=== PATIENT | female | born 1990 | race Caucasian/White ===

== ENCOUNTER 2023-04-09 07:49 | Observation (INO) ==
[2023-04-06 13:16] LABS: INR 0.9 (0.9-1.1); Partial Thromboplastin Time 32.4 sec (20.0-37.0); Prothrombin Time 12.8 sec (11.9-14.5)
[2023-04-06 13:20] LABS: Basophils # (Auto) 0.04 K/mcL (0.00-0.30); Basophils % (Auto) 0.5 % (0.0-2.0); Eosinophils % (Auto) 2.7 % (0.0-7.0); Hematocrit 40.1 % (34.1-44.9); Lymphocytes # (Auto) 2.28 K/mcL (1.50-4.80); Lymphocytes % (Auto) 30.5 % (15.5-49.0); Mean Cell Volume 88.9 fL (80.0-100.0); Mean Corpuscular HGB Conc 32.4 g/dL (31.0-36.0); Mean Platelet Volume 9.3 fL (8.8-12.5); Monocytes # (Auto) 0.44 K/mcL (0.10-0.90); Monocytes % (Auto) 5.9 % (1.0-12.0); Platelet Count 319 K/mcL (140-440); RBC 4.51 M/mcL (3.59-5.38); Red Cell Distribution Width 12.1 % (11.5-14.5); WBC 7.5 K/mcL (4.5-11.0)
[2023-04-06 13:29] LABS: ALT/SGPT 8 U/L (<40); AST/SGOT 12 U/L (<32); Albumin 4.3 gm/dL (3.2-5.2); Albumin/Globulin Ratio 1.9 (1.0-2.3); Alkaline Phosphatase 79 U/L (39-117); Bilirubin,Total 0.3 mg/dL (0.1-1.0); Blood Urea Nitrogen 10 mg/dL (6-20); Calcium 9.2 mg/dL (8.6-10.4); Carbon Dioxide 24 mmol/L (22-30); Chloride 102 mmol/L (96-108); Globulin 2.3 gm/dL (2.2-3.7); Glomerular Filtration Rate 112; Glucose 90 mg/dL (70-105)
[~2023-04-09 07:49] MED LIST: ceFAZolin 2 GM in DEXTROSE 5% IN WATER 50 ML IV SCH
[2023-04-09] MEDS ORDERED: IOPAMIDOL 100 ML BOTTLE IV ONE (07:50)
[2023-04-09] MEDS ORDERED: ROCURONIUM 10 MG/ML ML IV ONE (08:18)
[2023-04-09] MEDS ORDERED: PROPOFOL 200 MG/20 ML VIAL IV ONE ×2 (08:18→09:43)
[2023-04-09] MEDS ORDERED: fentaNYL 100 MCG/2 ML VIAL IV ONE ×2 (08:18→10:15)
[2023-04-09] MEDS ORDERED: DEXAMETHASONE 10 MG/ML VIAL ONE (08:18)
[2023-04-09] MEDS ORDERED: SCOPOLAMINE 1 PATCH PATCH TOPICAL ONE (09:02)
[2023-04-09] MEDS ORDERED: ONDANSETRON 4 MG/2 ML VIAL ONE (09:17)
[2023-04-09] MEDS ORDERED: MAGNESIUM SULFATE 2 GM/50 ML BAG IV ONE (09:28)
[2023-04-09] MEDS ORDERED: HYDROmorphone 1 MG/ML SYRINGE ONE (09:34)
[2023-04-09] MEDS ORDERED: SUGAMMADEX SODIUM 200 MG/2 ML VIAL IV ONE (09:42)
[2023-04-09] MEDS ORDERED: NALOXONE HCL 0.4 MG/ML VIAL IV PRN (09:50)
[2023-04-09] MEDS ORDERED: PROMETHAZINE 25 MG/ML VIAL IV PRN (09:50)
[2023-04-09] MEDS ORDERED: HYDROmorphone 0.5 MG/0.5 ML SYRINGE IV PRN ×2 (09:50→10:11)
[2023-04-09] MEDS ORDERED: ACETAMINOPHEN 1,000 MG/100 ML BAG IV ONE (09:50)
[2023-04-09] MEDS ORDERED: fentaNYL 100 MCG/2 ML VIAL IV PRN (09:50)
[2023-04-09] MEDS ORDERED: IPRATROPIUM/ALBUTEROL 3 ML AMPUL.NEB NEB PRN (09:50)
[2023-04-09] MEDS ORDERED: ONDANSETRON 4 MG/2 ML VIAL IV PRN (09:50)
[2023-04-09] MEDS ORDERED: TRANEXAMIC ACID 1,000 MG/10 ML VIAL ONE (10:01)
[2023-04-09] MEDS ORDERED: METHOCARBAMOL 750 MG TABLET PO PRN (12:14)
[2023-04-09] MEDS ORDERED: ACETAMINOPHEN 1,000 MG/100 ML BAG IV PRN (12:33)
[2023-04-09] MEDS ORDERED: HYDROmorphone 1 MG/ML SYRINGE IV PRN (13:02)
[2023-04-09] MEDS: oxyCODONE IR 5 MG TABLET PO PRN ×3 (13:20→21:09)
[2023-04-09] MEDS: 0.9 % SODIUM CHLORIDE 1,000 ML IV SCH ×2 (13:20→20:10)
[2023-04-09] MEDS: 0.9 % SODIUM CHLORIDE 10 ML SYRINGE IV SCH ×2 (13:20→20:02)
[2023-04-09] MEDS: ACETAMINOPHEN 1,000 MG/100 ML BAG IV SCH ×2 (16:27→21:10)
[2023-04-09] MEDS: DULoxetine 30 MG CAPSULE PO SCH (20:10)
[2023-04-09] MEDS: TOPIRAMATE 25 MG TABLET PO SCH (20:10)
[2023-04-09] MEDS: GABAPENTIN 300 MG CAPSULE PO SCH (20:11)
[2023-04-10] MEDS: oxyCODONE IR 5 MG TABLET PO PRN ×4 (02:19→21:11)
[2023-04-10] MEDS: ACETAMINOPHEN 1,000 MG/100 ML BAG IV SCH ×4 (03:52→21:05)
[2023-04-10] MEDS: 0.9 % SODIUM CHLORIDE 1,000 ML IV SCH ×3 (03:53→16:00)
[2023-04-10] MEDS: 0.9 % SODIUM CHLORIDE 10 ML SYRINGE IV SCH ×3 (04:40→21:07)
[2023-04-10 06:43] LABS: Basophils # (Auto) 0.02 K/mcL (0.00-0.30); Basophils % (Auto) 0.1 % (0.0-2.0); Eosinophils # (Auto) 0 K/mcL (0.00-0.70); Eosinophils % (Auto) 0 % (0.0-7.0); Hematocrit 37.2 % (34.1-44.9); Hemoglobin 12.3 g/dL (11.2-15.7); Lymphocytes # (Auto) 2.47 K/mcL (1.50-4.80); Lymphocytes % (Auto) 14.6 % (15.5-49.0); Mean Cell Volume 89.2 fL (80.0-100.0); Mean Corpuscular HGB Conc 33.1 g/dL (31.0-36.0); Mean Platelet Volume 9.4 fL (8.8-12.5); Monocytes # (Auto) 0.88 K/mcL (0.10-0.90); Monocytes % (Auto) 5.2 % (1.0-12.0); Neutrophils % (Auto) 79.7 % (38.0-78.0); Platelet Count 372 K/mcL (140-440); RBC 4.17 M/mcL (3.59-5.38); Red Cell Distribution Width 12.2 % (11.5-14.5)
[2023-04-10 07:09] LABS: ALT/SGPT 19 U/L (<40); AST/SGOT 24 U/L (<32); Albumin 3.8 gm/dL (3.2-5.2); Albumin/Globulin Ratio 1.5 (1.0-2.3); Alkaline Phosphatase 73 U/L (39-117); Bilirubin,Direct < 0.2 mg/dL (0-0.3); Bilirubin,Total 0.3 mg/dL (0.1-1.0); Blood Urea Nitrogen 7 mg/dL (6-20); Calcium 8.4 mg/dL (8.6-10.4); Carbon Dioxide 22 mmol/L (22-30); Chloride 102 mmol/L (96-108); Globulin 2.6 gm/dL (2.2-3.7); Glomerular Filtration Rate 118; Glucose 108 mg/dL (70-105); Lactate Dehydrogenase 178 U/L (135-225); Phosphorous 2.6 mg/dL (2.5-4.5); Triglycerides 77 mg/dL (<150); Uric Acid 3.6 mg/dL (2.5-8.0)
[2023-04-10] MEDS: FAMOTIDINE 20 MG TABLET PO SCH (09:24)
[2023-04-10] MEDS: TOPIRAMATE 25 MG TABLET PO SCH ×2 (09:24→21:06)
[2023-04-10] MEDS: DULoxetine 30 MG CAPSULE PO SCH ×2 (09:24→21:05)
[2023-04-10] MEDS: LIDOCAINE 4% TOP PATCH TOPICAL SCH (09:29)
[2023-04-10] MEDS ORDERED: LIDOCAINE PATCH TOPICAL SCH (10:00)
[2023-04-10] MEDS ORDERED: PIPERACILLIN SODIUM/TAZOBACTAM 3.375 GM in DEXTROSE 5% IN WATER 50 ML IV SCH (12:00)
[2023-04-10 17:55] LABS: Appearance,Urine CLEAR (Clear); Bilirubin,Urine Negative (Negative); Color,Urine STRAW; Culture Indicated,Urine No; Glucose,Urine (UA) Negative (Negative); Ketones,Urine Negative (Negative); Leukocyte Esterase,Urine Negative /uL (Negative); Nitrate,Urine Negative (Negative); Protein,Urine Negative (Negative); Specific Gravity,Urine 1.029 (1.000-1.035); Urine Blood 0.03 mg/dL (Negative); Urine RBC < 1 /hpf (0-3); Urine Squamous Epithelial Cell < 1 /hpf (0-4); Urine WBC 1 /hpf (0-4); Urobilinogen,Urine Negative
[2023-04-10] MEDS: KETOROLAC 30 MG/ML VIAL IV SCH (18:07)
[2023-04-10] MEDS: METHOCARBAMOL 1,000 MG/10 ML VIAL IV SCH (18:07)
[2023-04-10] MEDS: PIPERACILLIN SODIUM/TAZOBACTAM 3.375 GM in 0.9 % SODIUM CHLORIDE 100 ML IV SCH (18:08)
[2023-04-10] MEDS: GABAPENTIN 300 MG CAPSULE PO SCH (21:06)
[2023-04-11] MEDS: KETOROLAC 30 MG/ML VIAL IV SCH ×3 (00:03→13:08)
[2023-04-11] MEDS: METHOCARBAMOL 1,000 MG/10 ML VIAL IV SCH ×3 (00:03→13:06)
[2023-04-11] MEDS: PIPERACILLIN SODIUM/TAZOBACTAM 3.375 GM in 0.9 % SODIUM CHLORIDE 100 ML IV SCH ×2 (00:04→05:13)
[2023-04-11] MEDS: 0.9 % SODIUM CHLORIDE 1,000 ML IV SCH ×2 (02:15→10:35)
[2023-04-11] MEDS: ACETAMINOPHEN 1,000 MG/100 ML BAG IV SCH ×2 (04:03→13:01)
[2023-04-11] MEDS: 0.9 % SODIUM CHLORIDE 10 ML SYRINGE IV SCH (04:32)
[2023-04-11 06:46] LABS: Basophils # (Auto) 0.08 K/mcL (0.00-0.30); Basophils % (Auto) 0.7 % (0.0-2.0); Eosinophils # (Auto) 0.31 K/mcL (0.00-0.70); Eosinophils % (Auto) 2.9 % (0.0-7.0); Hemoglobin 10.6 g/dL (11.2-15.7); Lymphocytes # (Auto) 3.31 K/mcL (1.50-4.80); Mean Cell Volume 91.7 fL (80.0-100.0); Mean Corpuscular HGB Conc 32.1 g/dL (31.0-36.0); Mean Platelet Volume 9.4 fL (8.8-12.5); Monocytes # (Auto) 0.84 K/mcL (0.10-0.90); Monocytes % (Auto) 7.9 % (1.0-12.0); Neutrophils % (Auto) 57.2 % (38.0-78.0); Platelet Count 256 K/mcL (140-440); Red Cell Distribution Width 12.6 % (11.5-14.5); WBC 10.7 K/mcL (4.5-11.0)
[2023-04-11 07:04] LABS: ALT/SGPT 15 U/L (<40); AST/SGOT 15 U/L (<32); Albumin 3.4 gm/dL (3.2-5.2); Albumin/Globulin Ratio 1.5 (1.0-2.3); Alkaline Phosphatase 66 U/L (39-117); Bilirubin,Direct < 0.2 mg/dL (0-0.3); Bilirubin,Total < 0.2 mg/dL (0.1-1.0); Blood Urea Nitrogen 10 mg/dL (6-20); Calcium 8.3 mg/dL (8.6-10.4); Carbon Dioxide 25 mmol/L (22-30); Chloride 105 mmol/L (96-108); Globulin 2.3 gm/dL (2.2-3.7); Glomerular Filtration Rate 83; Glucose 88 mg/dL (70-105); Lactate Dehydrogenase 143 U/L (135-225); Phosphorous 2.9 mg/dL (2.5-4.5); Triglycerides 100 mg/dL (<150)
[2023-04-11] MEDS: TOPIRAMATE 25 MG TABLET PO SCH (10:02)
[2023-04-11] MEDS: DULoxetine 30 MG CAPSULE PO SCH (10:03)
[2023-04-11] MEDS: FAMOTIDINE 20 MG TABLET PO SCH (10:03)
[2023-04-11] MEDS: LIDOCAINE 4% TOP PATCH TOPICAL SCH (10:04)
[2023-04-11] MEDS ORDERED: PIPERACILLIN SODIUM/TAZOBACTAM 3.375 GM in DEXTROSE 5% IN WATER 100 ML IV SCH (14:00)
== END 2023-04-11 13:09 | disposition home or self-care (01) ==
LOC: MEDSUR 07:49 → SUR 07:49 → MEDSUR 10:56
PROVIDERS: ADMIT Family Medicine Adult Medicine; ATTEND Family Medicine Adult Medicine